=== PATIENT | female | born 1965 | race Caucasian/White ===

== ENCOUNTER → 2016-10-12 | Outpatient (CLI) | payer BC ==
--- NOTE | 2016-10-13 11:51 | MM ---
Reason for exam: screening (asymptomatic). Last mammogram was performed 1 year and 1 month ago. Physical Findings: A clinical breast exam by your physician is recommended on an annual basis and results should be correlated with mammographic findings. MG 3D Screening Mammo W/Cad Bilateral CC and MLO view(s) were taken. XCCL view(s) were taken of the right breast. Prior study comparison: September 01, 2015, mammogram, performed at [facility]. May 31, 2011, mammogram, performed at [facility]. The breast tissue is heterogeneously dense. This may lower the sensitivity of mammography. Finding: There are typically benign round, diffuse/scattered and grouped calcifications in both breasts. There is no discrete abnormality. ASSESSMENT: Benign, BI-RAD 2 RECOMMENDATION: Routine screening mammogram of both breasts in 1 year.
== END | disposition home or self-care (01) ==
LOC: RADMAMWWP 08:50
PROVIDERS: ATTEND Family Medicine
DX: Z12.31 Encounter for screening mammogram for malignant neoplasm of breast (principal)
CPT/HCPCS: 77063; G0202

== ENCOUNTER → 2020-09-18 | Outpatient (CLI) | payer BC ==
--- NOTE | 2020-09-23 12:13 | MM ---
Reason for exam: screening (asymptomatic). Last mammogram was performed 3 years and 11 months ago. Physical Findings: A clinical breast exam by your physician is recommended on an annual basis and results should be correlated with mammographic findings. MG 3D Screening Mammo W/Cad Bilateral CC and MLO view(s) were taken. Prior study comparison: October 12, 2016, bilateral MG 3d screening mammo w/cad. September 01, 2015, mammogram, performed at [facility]. The breast tissue is heterogeneously dense. This may lower the sensitivity of mammography. Bilateral scattered breast calcifications. ASSESSMENT: Benign, BI-RAD 2 RECOMMENDATION: Routine screening mammogram of both breasts in 1 year.
== END | disposition home or self-care (01) ==
LOC: RADMAMWWP 15:20
PROVIDERS: ATTEND Family Medicine
DX: Z12.31 Encounter for screening mammogram for malignant neoplasm of breast (principal)
CPT/HCPCS: 77063; 77067

== ENCOUNTER → 2021-10-12 | Outpatient (CLI) | payer BC ==
--- NOTE | 2021-10-14 17:35 | MM ---
Reason for Exam: Screening (asymptomatic). Last mammogram was performed 1 year(s) and 1 month(s) ago. Patient History: Menarche at age 13. First Full-Term at age 25. Risk Values: Mel 5 year model risk: 1.1%. NCI Lifetime model risk: 8.2%. Prior Study Comparison: 09/01/2015 Screening Mammogram, [facility]. 10/12/2016 Bilateral Screening Mammogram, [facility]. 09/18/2020 Bilateral Screening Mammogram, [facility]. Tissue Density: The breast tissue is heterogeneously dense. This may lower the sensitivity of mammography. Findings: Analyzed By CAD. Pattern appears symmetrical and stable. Benign-appearing calcifications are in the left breast. Punctate calcifications are within the right breast. In the medial lateral oblique view there is a grouping of punctate calcifications upper outer aspect. Additional evaluation is recommended. Magnification view in the mediolateral oblique view as well as a standard 3-D mediolateral view is recommended. These are 6 cm from the nipple. Overall Assessment: Incomplete: need additional imaging evaluation, BI-RAD 0 Management: Diagnostic Mammogram of the left breast. A negative mammogram report should not preclude additional follow up of suspicious palpable abnormalities. Patient should continue monthly self breast exam. A clinical breast exam by your physician is recommended on an annual basis and results should be correlated with mammographic findings. Electronically signed and approved by: Khurram Haider D.O. Radiologis
== END | disposition home or self-care (01) ==
LOC: RADMAMWWP 11:13
PROVIDERS: ATTEND Family Medicine
DX: Z12.31 Encounter for screening mammogram for malignant neoplasm of breast (principal)
CPT/HCPCS: 77063; 77067

== ENCOUNTER → 2021-10-19 | Outpatient (CLI) | payer BC ==
--- NOTE | 2021-10-19 10:25 | MM ---
Reason for Exam: Additional evaluation requested from abnormal screening. Last screening mammogram was performed less than 1 month ago. Patient History: Menarche at age 13. First Full-Term at age 25. Risk Values: Mel 5 year model risk: 1.1%. NCI Lifetime model risk: 8.2%. Prior Study Comparison: 10/12/2016 Bilateral Screening Mammogram, [facility]. 09/18/2020 Bilateral Screening Mammogram, [facility]. 10/12/2021 Bilateral MG 3D screening mammo w/cad, [facility]. Tissue Density: Left: The breast tissue is heterogeneously dense. This may lower the sensitivity of mammography. Findings: Analyzed By CAD. A few benign oil cyst calcifications are present. However, in the posterior upper outer quadrant, grouped punctate and slightly heterogeneous calcifications are identified. Biopsy is recommended. Overall Assessment: Suspicious, BI-RAD 4 Management: Stereotactic Core Biopsy of the left breast. 1. Stereotactic core needle biopsy posterior upper outer quadrant left breast microcalcifications. Electronically signed and approved by: Sukhdeep Cano M.D. Radiologist
== END | disposition home or self-care (01) ==
LOC: RADMAMWWP 09:39
PROVIDERS: ATTEND Family Medicine
DX: R92.1 Mammographic calcification found on diagnostic imaging of breast (principal)
CPT/HCPCS: 77061; 77065

== ENCOUNTER → 2021-11-25 | Day surgery (SDC) | payer BC ==
[2021-11-25 07:21] VITALS: RESP 16
--- NOTE | 2021-11-25 07:59 | P.GSHP ---
History of Present Illness H&P Date: 11/25/21 Chief Complaint: abnormal Doris is a 56 year old white female with seeni n consultation for Sheryl Salvador regarding the mammographic abnormality in her t breast. She underwent a bilateral calcifications of concern were noted and a diagnostic left breast mammogram was performed and [id number]. This revealed calcifications of concern in the posterior upper outer quadrant. Biopsy was recommended. She does not feel any lumps masses or nodules of concern in either breast. She has never had any surgery on her breast or any breast biopsies. She is not complaining of any pain in her breast nipple discharge or skin changes. Caffeine: 3 cups/day nicotine: none chocolate: weekly hormones: BCP stopped 25 year ago, used for 10 years Family History: none of cancer Hormonal History: menarche: 13 A1, breast fed: no, age at : 25 menopause: 54 Surgical history: Negative Medical history: Negative Social history: Nicotine: Negative Alcohol: weekly; beer drugs: none - Constitutional Constitutional: Denies chills, Denies fever - EENT Eyes: denies blurred vision, denies pain Ears: deny: decreased hearing, tinnitus Ears, nose, mouth and throat: Denies headache, Denies sore throat - Breasts Breasts: bilateral: as per HPI - Cardiovascular Cardiovascular: Denies chest pain, Denies shortness of breath - Respiratory Respiratory: Denies cough, Denies 7 - Gastrointestinal Gastrointestinal: Denies abdominal pain, Denies diarrhea, Denies nausea, Denies vomiting - Genitourinary (Female) Genitourinary: Denies dysuria, Denies hematuria - Menstruation Menstruation: Reports postmenopausal - Musculoskeletal Comment: joint pains at times - Integumentary Integumentary: Denies pruritus, Denies rash - Neurological Neurological: Denies numbness, Denies weakness - Psychiatric Psychiatric: Reports anxiety, Denies depression - Endocrine Endocrine: Denies fatigue, Denies weight change - Hematologic/Lymphatic Comment: none - Allergic/Immunologic Allergic/Immunologic: Reports seasonal allergies Past Medical History Past Medical History: No Reported History History of Any Multi-Drug Resistant Organisms: None Reported Past Surgical History: No Surgical Hx Reported Past Anesthesia/Blood Transfusion Reactions: No Reported Reaction Past Psychological History: Anxiety, Depression Smoking Status: Former smoker Past Alcohol Use History: Occasional Past Drug Use History: None Reported Medications and Allergies Home Medications Medication Instructions Recorded Confirmed Type FLUoxetine HCL [PROzac] 20 mg PO DAILY 10/29/21 11/25/21 History busPIRone HCl [Buspar] 1 tablet PO DAILY 10/29/21 11/25/21 History Allergies Allergy/AdvReac Type Severity Reaction Status Date / Time No Known Allergies Allergy Verified 11/25/21 07:31 Surgical - Exam Vital Signs Temp Pulse Resp BP 98.0 F 71 16 132/77 11/25/21 07:14 11/25/21 07:14 11/25/21 07:14 11/25/21 07:14 BMI: 26.5 - General moderate distress - Eyes normal ocular movement - Neck trachea midline - Respiratory normal respiratory effort - Cardiovascular Rhythm: regular Heart Sounds: normal: S1, S2 - Abdomen Abdomen: soft, non tender, no guarding, no rigid, no rebound - Integumentary poison perla left ankle - Neurologic no disoriented, no combative - Musculoskeletal normal gait, normal posture - Psychiatric oriented to time, oriented to person, oriented to place, speech is normal, memory intact Breast Exam: BRA: 36B inspection: bilateral grade 2 ptosis palpation: right breast: Multi-positional exam fibrocystic changes no dominant masses or nodules of concern Right axilla: No adenopathy of concern Left breast: Multi-positional exam fibrocystic changes no dominant masses or nodules of concern Left axilla: No adenopathy of concern Results Mammogram reviewed with Dr. Salcedo Assessment and Plan Assessment: Impression: Microcalcifications of concern noted in the left breast on recent mammogram Fibrocystic breast changes Plan: Stereotactic core biopsy left breast The skin benefits of procedure discussed with the patient. As well as alternatives. Risks include but are not limited to bleeding, infection, r eaction to the anesthetic. If the biopsy were felt to be discordant then further tissue sampling may be necessary. Alternatives such as watchful waiting resection in the operating room were discussed but not recommended. Patient understands and wishes to proceed. CC: Sheryl Salvador
--- NOTE | 2021-11-25 08:44 | P.PCN ---
Date of Procedure: 11/25/21 Preoperative Diagnosis: Microcalcifications of concern left breast upper outer quadrant, posterior position Postoperative Diagnosis: Same Procedure(s) Performed: Left breast stereotactic core biopsy Anesthesia: local Surgeon: Darlene Pompa Pathology: other (Breast tissue with microcalcifications of concern sent to pathology) Condition: stable Disposition: same day Indications for Procedure: Microcalcifications of concern left breast upper outer quadrant Operative Findings: Radiographic specimen revealed microcalcifications of concern in the specimen Description of Procedure: The patient was seen and examined preprocedure. On physical examination no dominant masses or nodules of concern were noted on multiple positional exam of either breast. She had no axillary adenopathy of concern on either axilla. Risks and benefits of the procedure were discussed with the patient. Risks include but are not limited to bleeding, infection, reaction to the anesthetic. If the biopsy specimen were discordant and the possibility of further tissue acquisition was discussed. Alternatives such as watchful waiting and resection of the operating room were discussed but not recommended. The patient understood and wished to proceed. The patient was taken to the stereotactic core biopsy room. She was positioned prone on the lower rad table. A lateral to medial approach was utilized. The lesion of concern was identified. The lesion was in the left breast in the upper-outer quadrant. The lesion was targeted. The breast was prepped using Betadine. 20 mL of 1% lidocaine were used to anesthetize the area of concern. A 9-gauge vacuum-assisted core rotating biopsy needle was driven to the correct coordinates. A prefire film was obtained. The needle was noted to be in the correct location. The needle was fired. Post fire film was obtained. The needle was noted to be in the correct location. 12 core biopsy specimens were obtained. The biopsy site was lavaged. Radiograph of the specimen revealed microcalcifications of concern had been sampled. A secure marked top Clip was placed. Radiograph revealed the clip to be in the correct location. The patient will follow-up with Dr. House next week. The specimen was sent to pathology. If she has any questions or concerns she will follow up sooner. CC: Sheryl Salvador
[2021-11-25 08:50] VITALS: BP 133/81; PULSE 64; TEMP 98.2
--- NOTE | 2021-11-25 14:04 | MM ---
Date of Procedure: 11/25/21 Preoperative Diagnosis: Microcalcifications of concern left breast upper outer quadrant, posterior position Postoperative Diagnosis: Same Procedure(s) Performed: Left breast stereotactic core biopsy Anesthesia: local Surgeon: Darlene Pompa Pathology: other (Breast tissue with microcalcifications of concern sent to pathology) Condition: stable Disposition: same day Indications for Procedure: Microcalcifications of concern left breast upper outer quadrant Operative Findings: Radiographic specimen revealed microcalcifications of concern in the specimen Description of Procedure: The patient was seen and examined preprocedure. On physical examination no dominant masses or nodules of concern were noted on multi-positional exam of either breast. She had no axillary adenopathy of concern in either axilla. Risks and benefits of the procedure were discussed with the patient. Risks include but are not limited to bleeding, infection, reaction to the anesthetic. If the biopsy specimen were discordant the possibility of further tissue acquisition was discussed. Alternatives such as watchful waiting and resection in the operating room were discussed but not recommended. The patient understood and wished to proceed. The patient was taken to the stereotactic core biopsy room. She was positioned prone on the lo rad table. A lateral to medial approach was utilized. The lesion of concern was identified. The lesion was in the left breast in the upper-outer quadrant. The lesion was targeted. The breast was prepped using Betadine. 20 mL of 1% lidocaine were used to anesthetize the area of concern. A 9-gauge vacuum-assisted core rotating biopsy needle was driven to the correct coordinates. A prefire film was obtained. The needle was noted to be in the correct location. The needle was fired. A post fire film was obtained. The needle was noted to be in the correct location. 12 core biopsy specimens were obtained. The biopsy site was lavaged. Radiograph of the specimen revealed microcalcifications of concern had been sampled. A secure giovana top-hat Clip was placed. Radiograph revealed the clip to be in the correct location. The patient will follow-up with Dr. House next week. The specimen was sent to pathology. If she has any questions or concerns she will follow up sooner. EARL
== END ==
LOC: RADMAMWWP 06:58
PROVIDERS: ATTEND Surgery
DX: N60.12 Diffuse cystic mastopathy of left breast (principal); N60.82 Other benign mammary dysplasias of left breast; F41.9 Anxiety disorder, unspecified; F32.A Depression, unspecified; J30.2 Other seasonal allergic rhinitis; Z87.891 Personal history of nicotine dependence; Z79.899 Other long term (current) drug therapy
CPT/HCPCS: 88305; 88342; 88341; 19081; A4648; J2001

== ENCOUNTER → 2021-11-25 | Outpatient (CLI) | payer BC | LOC: WWCWWP 06:54 | PROVIDERS: ATTEND Surgery | DX: Z53.9 Procedure and treatment not carried out, unspecified reason (principal) ==

== ENCOUNTER 2022-02-01 07:08 | Day surgery (SDC) | payer BC ==
[2022-01-28 15:34] VITALS: BMI 26.5
--- NOTE | 2022-01-28 16:15 | P.PN ---
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 She underwent a bilateral mammogram and calcifications of concern were noted in adonis left breast and a diagnostic left breast mammogram was performed on . This revealed calcifications of concern in the posterior upper outer quadrant. Biopsy was recommended. She did not feel any lumps masses or nodules of concern in either breast. She had never had any surgery on her breast or any breast biopsies. She was not complaining of any pain in her breast or nipple discharge or skin changes. She underwent a stero biopsy on 11-25-21 which revealed atypical ductal hyperplasia. Caffeine: 3 cups/day nicotine: none chocolate: weekly hormones: BCP stopped 25 year ago, used for 10 years Family History: none of cancer Hormonal History: menarche: 13 A1, breast fed: no, age at : 25 menopause: 54 Surgical history: Negative Medical history: Negative Social history: Nicotine: Negative Alcohol: weekly; beer drugs: none - Constitutional Constitutional: Denies chills, Denies fever - EENT Eyes: denies blurred vision, denies pain Ears: deny: decreased hearing, tinnitus Ears, nose, mouth and throat: Denies headache, Denies sore throat - Breasts Breasts: bilateral: as per HPI - Cardiovascular Cardiovascular: Denies chest pain, Denies shortness of breath - Respiratory Respiratory: Denies cough - Gastrointestinal Gastrointestinal: Denies abdominal pain, Denies diarrhea, Denies nausea, Denies vomiting - Genitourinary (Female) Genitourinary: Denies dysuria, Denies hematuria - Menstruation Menstruation: Reports postmenopausal - Musculoskeletal Comment: joint pains at times - Integumentary Integumentary: Denies pruritus, Denies rash - Neurological Neurological: Denies numbness, Denies weakness - Psychiatric Psychiatric: Reports anxiety, Denies depression - Endocrine Endocrine: Denies fatigue, Denies weight change - Hematologic/Lymphatic Comment: none - Allergic/Immunologic Allergic/Immunologic: Reports seasonal allergies Objective - Vital Signs Vital signs: Intake & Output 01/27/22 01/28/22 01/28/22 18:59 06:59 18:59 Weight 65.771 kg - Exam BMI: 26.5 - Constitutional General appearance: Present: cooperative - EENT Eyes: Present: EOMI - Neck Neck: Present: normal ROM - Respiratory Respiratory: bilateral: CTA - Cardiovascular Rhythm: regular Heart sounds: normal: S1, S2 - Integumentary Integumentary: Present: normal turgor - Musculoskeletal Musculoskeletal: Present: gait normal - Psychiatric Psychiatric: Present: A&O x's 3, appropriate affect, intact judgment & insight - Additional findings Additional findings: Breast Exam: BRA: 36B inspection: bialteral grade 2 ptosis palpation: right breast: Multiple positional exam no dominant masses or nodules of concern Right axilla: No adenopathy of concern Left breast: Biopsy site mild ecchymosis no evidence of any infection or hematoma Left axilla: No adenopathy of concern Assessment and Plan Assessment: Impression: Left breast core biopsy flat epithelial atypia, atypical hyperplasia Plan: left breast Needle localization and left breast excisional lumpectomy, possible onco-plastic tissue transfer
[~2022-02-01 07:08] MED LIST: ALPRAZolam 0.5 MG TAB PO PRN; DEXAMETHASONE SOD PHOSPHATE 4 MG/ML 1 ML VIAL IV ONE; HEPARIN SODIUM,PORCINE/PF 5,000 UNIT/0.5 ML SYRINGE SQ PRN; LACTATED RINGERS 1,000 ML IV SCH; ONDANSETRON 4 MG/2 ML VIAL IVP ONE; Pre Op ABX Message 1 EACH MISC MISCELLANE ONE
[2022-02-01] MEDS ORDERED: LIDOCAINE 1% INJ 10MG/ML (20 ML MDV) SQ ONE (08:45)
[2022-02-01] MEDS ORDERED: MIDAZOLAM 2 MG/2 ML VIAL ONE (09:44)
[2022-02-01] MEDS ORDERED: PROPOFOL 10 MG/ML 20 ML VIAL IV ONE (09:44)
[2022-02-01] MEDS ORDERED: fentaNYL (PF) 50 MCG/ML 2 ML AMP ONE (09:44)
[2022-02-01] MEDS ORDERED: LIDOCAINE 2% INJ 20 MG/ML (2 ML VIAL) ONE (09:44)
--- NOTE | 2022-02-01 11:01 | P.OP ---
Date of Procedure: 02/01/22 Preoperative Diagnosis: epithelial atypia left breast on core biopsy Postoperative Diagnosis: same Procedure(s) Performed: left breast needle localization excisional lumpectomy Anesthesia: RAN Surgeon: Darlene Pompa Estimated Blood Loss (ml): 5 IV fluids (ml): 500 Pathology: other (left breast tissue, clip noted to be in specimen) Condition: stable Disposition: same day Indications for Procedure: core biopsy revealing epithelial atypia of the left breast Operative Findings: dense breast tissue Description of Procedure: The patient underwent a core biopsy of the left breast which revealed epithelial atypia. She was recommended to undergo needle localization and excisional lumpectomy in the operating room. Following needle localization of the area of concern and the patient was brought to the operating room. Following induction with anesthesia the left breast was prepped and draped in a sterile fashion. An incision was made and carried down to the shaft of the needle. Surrounding tissue was excised. The tissue was painted for orientation. Radiograph of the specimen revealed the area of concern had been removed with the clip present. After assured that hemostasis was attained titanium clips were placed. The deep tissues were closed using 3-0 Vicryl suture. The skin was closed using 3-0 Vicryl suture and 4-0 Monocryl. Steri-Strips were applied. All instrument and sponge counts were correct at the end of the case.
[2022-02-01 11:12] VITALS: TEMP 97
[2022-02-01] MEDS: HYDROmorphone 0.5 MG/0.5 ML SYRINGE IVP PRN ×2 (11:48→11:59)
[2022-02-01 13:00] VITALS: BP 127/73; PULSE 78; RESP 18
--- NOTE | 2022-02-08 09:32 | MM ---
Risk Values: Mel 5 year model risk: 2.6%. NCI Lifetime model risk: 17.9%. Prior Study Comparison: 09/18/2020 Bilateral Screening Mammogram, [facility]. 10/12/2021 Bilateral MG 3D screening mammo w/cad, [facility]. 10/19/2021 Left MG 3D work up w/cad , [facility]. Pathology Description: Approach: Lateral to Medial Needle Type: 5 cm [place] Informed consent was obtained and all the patient's questions were answered. The clip in question was localized mammographically. The standard sterile technique was utilized, as well as appropriate local anesthesia with 1% Lidocaine and bicarbonate. Localization needle followed by placement of a guidewire was performed under mammographic guidance. Verification images demonstrate appropriate deployment of the guidewire. The patient tolerated the procedure well and left the department in stable condition. Specimen radiograph demonstrates the clip in question to reside within the specimen. IMPRESSION: Successful needle localization and open biopsy left breast with pathology results pending. Pathology Results: Result: High risk, Atypical ductal hyperplasia. LEFT BREAST, LUMPECTOMY: Focal flat epithelial atypia/atypical ductal hyperplasia (FEA/ADH) with adjacent hemorrhagic biopsy site change and scar. Background breast having fibrocystic change with apocrine metaplasia, columnar cell change, microcalcification and focal benign adenosis. Benign margins of resection. Overall Assessment: High risk Management: Diagnostic Mammogram of the left breast in 6 months. Electronically signed and approved by: Denzel Salcedo M.D. Radiologis
== END 2022-02-01 13:26 | disposition home or self-care (01) ==
LOC: OR 07:08
PROVIDERS: ATTEND Surgery
DX: N60.82 Other benign mammary dysplasias of left breast (principal); N62 Hypertrophy of breast; K21.9 Gastro-esophageal reflux disease without esophagitis; F32.A Depression, unspecified; F17.290 Nicotine dependence, other tobacco product, uncomplicated; Z79.899 Other long term (current) drug therapy
CPT/HCPCS: 19301; 88307; 76098; 19281; C1819; J2250; J1100; J2405; J2001 ×2; J3010; J2704; J1170; J1644

== ENCOUNTER → 2022-02-17 | Outpatient (CLI) | payer BC ==
[2022-02-17 08:47] VITALS: BP 131/84; PULSE 83; RESP 17; TEMP 98.2
--- NOTE | 2022-02-17 09:22 | P.PN ---
Progress Note - Text Progress Note Date: 02/17/22 Doris is a 56 year old white female status post left breast lumpectomy on 02-01-22. Pathology revealed flat epithelial atypia/atypical ductal hyperplasia. The patient tolerated the procedure without difficulty. Physical examination: Incision: Clean and dry, there is some extrusion of the knot at the lateral portion of the incision which was cut No evidence of infection Lungs: Clear Heart: Regular rate and rhythm Secondary to the atypical hyperplasia at Mel risk evaluation is evaluated. Mel Evaluation: 5 year risk: 2.6 lifetime risk; 17.9 We have discussed potential chemoprophylaxis and at this time the patient has declined. Plan: Repeat left breast mammogram in 6 months with physician exam at that time CC: Kayce Salvador
== END ==
LOC: WWCWWP 08:30
PROVIDERS: ATTEND Surgery
DX: N60.82 Other benign mammary dysplasias of left breast (principal)

== ENCOUNTER → 2022-08-04 | Outpatient (CLI) | payer BC ==
--- NOTE | 2022-08-04 13:27 | MM ---
Reason for Exam: High risk patient. Last screening mammogram was performed 9 month(s) ago. Patient History: Menarche at age 13. First Full-Term at age 25. Postmenopausal. Previous Atypical Ductal Hyperplasia at age 56. 02/01/2022, High risk MG pre op needle loc LT on the left side. 11/25/2021, High risk MG stereo VAD BX LT on the left side. Risk Values: Mel 5 year model risk: 3.4%. NCI Lifetime model risk: 21.7%. Prior Study Comparison: 09/18/2020 Bilateral Screening Mammogram, [facility]. 10/12/2021 Bilateral MG 3D screening mammo w/cad, [facility]. 10/19/2021 Left MG 3D work up w/cad LT, [facility]. Tissue Density: Left: The breast tissue is heterogeneously dense. This may lower the sensitivity of mammography. Findings: Analyzed By CAD. Postprocedural changes to the left breast. No new suspicious masses, calcifications or distortions. Overall Assessment: Benign, BI-RAD 2 Management: Screening Mammogram of both breasts in 1 year. A clinical breast exam by your physician is recommended on an annual basis and results should be correlated with mammographic findings. This exam should not preclude additional follow-up of suspicious palpable abnormalities. Results were given to the patient verbally at the time of exam. Electronically signed and approved by: Shade Aggarwal DO
[2022-08-04 13:56] VITALS: BP 105/68; PULSE 78; RESP 16; TEMP 97.8
--- NOTE | 2022-08-04 14:12 | P.PN ---
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 She underwent a bilateral mammogram and calcifications of concern were noted in adonis left breast and a diagnostic left breast mammogram was performed on . This revealed calcifications of concern in the posterior upper outer quadrant. Biopsy was recommended. She did not feel any lumps masses or nodules of concern in either breast. She had never had any surgery on her breast or any breast biopsies. She was not complaining of any pain in her breast or nipple discharge or skin changes. She underwent a stero biopsy on 11-25-21 which revealed atypical ductal hyperplasia. She underwent a lumpectomy on 02-01-22, pathology revealed flat epithelial atypia atypical ductal hyperplasia. Left breast mammogram on 08-04-22 BIRAD 2. Does not feel any new lumps masses or nodules of concern in either breast. Mel 5 year risk: 3.4% Discussed chemoprevention at this time she has declined. Caffeine: 3 cups/day nicotine: none chocolate: weekly hormones: BCP stopped 25 year ago, used for 10 years Family History: none of cancer Hormonal History: menarche: 13 A1, breast fed: no, age at : 25 menopause: 54 Surgical history: left breast lumpectomy Medical history: Negative Social history: Nicotine: Negative Alcohol: weekly; beer drugs: none - Constitutional Constitutional: Denies chills, Denies fever - EENT Eyes: denies blurred vision, denies pain Ears: deny: decreased hearing, tinnitus Ears, nose, mouth and throat: Denies headache, Denies sore throat - Breasts Breasts: bilateral: as per HPI - Cardiovascular Cardiovascular: Denies chest pain, Denies shortness of breath - Respiratory Respiratory: Denies cough - Gastrointestinal Gastrointestinal: Denies abdominal pain, Denies diarrhea, Denies nausea, Denies vomiting - Genitourinary (Female) Genitourinary: Denies dysuria, Denies hematuria - Menstruation Menstruation: Reports postmenopausal - Musculoskeletal Comment: joint pains at times - Integumentary Integumentary: Denies pruritus, Denies rash - Neurological Neurological: Denies numbness, Denies weakness - Psychiatric Psychiatric: Reports anxiety, Denies depression - Endocrine Endocrine: Denies fatigue, Denies weight change - Hematologic/Lymphatic Comment: none - Allergic/Immunologic Allergic/Immunologic: Reports seasonal allergies Objective - Vital Signs Vital signs: Vital Signs Temp 97.8 F 08/04/22 13:53 Pulse 78 08/04/22 13:53 Resp 16 08/04/22 13:53 BP 105/68 08/04/22 13:53 Pulse Ox 99 08/04/22 13:53 FiO2 Intake & Output 08/03/22 08/04/22 08/04/22 18:59 06:59 18:59 Weight 64.864 kg - Constitutional General appearance: Present: cooperative - EENT Eyes: Present: EOMI ENT: Present: hearing grossly normal - Neck Neck: Present: normal ROM - Respiratory Respiratory: bilateral: CTA - Cardiovascular Rhythm: regular Heart sounds: normal: S1, S2 - Gastrointestinal General gastrointestinal: Present: soft - Integumentary Integumentary: Present: normal turgor - Musculoskeletal Musculoskeletal: Present: gait normal - Psychiatric Psychiatric: Present: A&O x's 3, appropriate affect, intact judgment & insight - Additional findings Additional findings: Breast Exam: BRA: 36B inspection: bialteral grade 2 ptosis palpation: right breast: Multi-positional exam no dominant masses or nodules of concern Right axilla: No adenopathy of concern Left breast: multi-positional exam no dominate masses or nodules of concern Left axilla: No adenopathy of concern Assessment and Plan Assessment: Impression: Left breast flat epithelial atypia, atypical hyperplasia; re-sected 02-01-22 Plan: Bilateral mammogram is due in October, will do a right breast mammogram at that time and appointment after if that is OK bilateral mammogram in October 2023 CC: Kayce Salvador
== END ==
LOC: WWCWWP 12:47
PROVIDERS: ATTEND Surgery
DX: N60.92 Unspecified benign mammary dysplasia of left breast (principal); R92.8 Other abnormal and inconclusive findings on diagnostic imaging of breast; Z12.31 Encounter for screening mammogram for malignant neoplasm of breast
CPT/HCPCS: 77061; 77065

== ENCOUNTER → 2022-08-04 | Outpatient (CLI) | payer BC | END | disposition home or self-care (01) | LOC: RADMAMWWP 13:08 | PROVIDERS: ATTEND Surgery | DX: Z53.9 Procedure and treatment not carried out, unspecified reason (principal) ==

== ENCOUNTER → 2022-10-24 | Outpatient (CLI) | payer BC ==
--- NOTE | 2022-10-24 07:59 | MM ---
Reason for Exam: Follow-up at short interval from prior study. Last screening mammogram was performed 12 month(s) ago. Patient History: Menarche at age 13. First Full-Term at age 25. Postmenopausal. Previous Atypical Ductal Hyperplasia at age 56. 02/01/2022, High risk MG pre op needle loc LT on the left side. 11/25/2021, High risk MG stereo VAD BX LT on the left side. Risk Values: Mel 5 year model risk: 3.4%. NCI Lifetime model risk: 21.7%. Prior Study Comparison: 10/12/2021 Bilateral MG 3D screening mammo w/cad, [facility]. 10/19/2021 Left MG 3D work up w/cad LT, [facility]. 08/04/2022 Left MG 3D diag mammo w/cad LT, [facility]. Tissue Density: Right: The breast tissue is heterogeneously dense. This may lower the sensitivity of mammography. Findings: Analyzed By CAD. No new suspicious masses, calcifications or distortions. Overall Assessment: Benign, BI-RAD 2 Management: Screening Mammogram of both breasts in 1 year. Results were given to the patient verbally at the time of exam. Patient should continue monthly self-breast exams. A clinical breast exam by your physician is recommended on an annual basis. This exam should not preclude additional follow-up of suspicious palpable abnormalities. Note on Mel scores and lifetime risk: 1. A Mel score greater than 3% is considered moderate risk. If this is the case, consider specialist referral to assess eligibility for a risk reducing agent. 2. If overall lifetime risk for the development of breast cancer is 20% or higher, the patient may qualify for future screening with alternating mammogram and breast MRI. Electronically signed and approved by: Shade Aggarwal DO
== END | disposition home or self-care (01) ==
LOC: RADMAMWWP 07:41
PROVIDERS: ATTEND Surgery
DX: R92.8 Other abnormal and inconclusive findings on diagnostic imaging of breast (principal); Z78.0 Asymptomatic menopausal state
CPT/HCPCS: 77061; 77065

== ENCOUNTER → 2022-10-26 | Outpatient (CLI) | payer BC ==
--- NOTE | 2022-10-26 14:25 | P.PN ---
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 This was BIRAD 2. Her last left breast mammogram was in . This was also BIRAD 2. This was done following an open biopsy of the left breast. She is not complaining of any new lumps masses or not his of concern in either breast. She underwent a left breast stereo biopsy on which revealed atypical ductal hyperplasia. She then underwent a left breast lumpectomy on which revealed flat epithelial atypia/atypical ductal hyperplasia. Mel 5 year risk: 3.4% Discussed chemoprevention at this time she has declined. Lifetime risk 21.7% discussed alternating MRI/mammogram and she would like to do this if her insurance covers it Caffeine: 3 cups/day nicotine: none chocolate: weekly hormones: BCP stopped 25 year ago, used for 10 years Family History: none of cancer Hormonal History: menarche: 13 A1, breast fed: no, age at : 25 menopause: 54 Surgical history: left breast lumpectomy Medical history: Negative Social history: Nicotine: Negative Alcohol: weekly; beer drugs: none - Constitutional Constitutional: Denies chills, Denies fever - EENT Eyes: denies blurred vision, denies pain Ears: deny: decreased hearing, tinnitus Ears, nose, mouth and throat: Denies headache, Denies sore throat - Breasts Breasts: bilateral: as per HPI - Cardiovascular Cardiovascular: Denies chest pain, Denies shortness of breath - Respiratory Respiratory: Denies cough - Gastrointestinal Gastrointestinal: Denies abdominal pain, Denies diarrhea, Denies nausea, Denies vomiting - Genitourinary (Female) Genitourinary: Denies dysuria, Denies hematuria - Menstruation Menstruation: Reports postmenopausal - Musculoskeletal Comment: joint pains at times - Integumentary Integumentary: Denies pruritus, Denies rash - Neurological Neurological: Denies numbness, Denies weakness - Psychiatric Psychiatric: Reports anxiety, Denies depression - Endocrine Endocrine: Denies fatigue, Denies weight change - Hematologic/Lymphatic Comment: none - Allergic/Immunologic Allergic/Immunologic: Reports seasonal allergies Physical examination is not repeated today she had a breast examination and Assessment and Plan Assessment: Assessment and Plan Assessment: Impression: Left breast flat epithelial atypia, atypical hyperplasia; resected 02-01-22 Left breast mammogram [id number] BIRAD 2, right breast mammogram [id number] BIRAD 2 Plan: Bilateral mammogram in July 2022 with appointment at that time The patient will have alternating MRI and mammogram every 6 months secondary to lifetime risk of breast cancer greater than 20% of insurance company will cover this The patient has declined chemoprevention The patient will follow up sooner any questions or concerns CC: Kayce Salvador Additional CC's: Kenton Navarro
== END ==
LOC: WWCWWP 13:34
PROVIDERS: ATTEND Surgery
DX: R92.8 Other abnormal and inconclusive findings on diagnostic imaging of breast (principal); N60.82 Other benign mammary dysplasias of left breast; Z90.12 Acquired absence of left breast and nipple

== ENCOUNTER → 2023-05-23 | Outpatient (CLI) | payer BC ==
--- NOTE | 2023-05-24 13:02 | BMR ---
EXAM DATE: 05/23/2023 EXAM DESCRIPTION: MRI-Breast Bilat (W/WO Contrast) INDICATION: >20% lifetime risk for malignancy, high risk surveillance. History of high-risk lesion in the left breast status post surgical excision. COMPARISON: Comparison was made to prior relevant imaging available in PACS TECHNIQUE: Multiplanar multisequence breast MRI was performed prior to and after administration of 6.0 mL of Gadavist intravenously. Post processing was performed utilizing a [employer] workstation. FINDINGS: There is minimal, symmetric background parenchymal enhancement in breasts that are composed of heterogeneous fibroglandular tissue. RIGHT BREAST: There is a well-circumscribed ovoid T2 hyperintense enhancing mass centrally in the breast along the nipple line anterior depth (series 401, image 32, series 505, image 356 and series 601, image 160). It measures 0.5 x 0.4 x 0.3 cm and demonstrate progressive enhancing pattern which is suggestive of benign etiology. Otherwise, review of the dynamic contrast enhanced series shows no suspicious enhancement patterns or other abnormalities. LEFT BREAST: Postsurgical changes are present in the left breast. Mild linear enhancement along the posterior aspect of the nipple (series 505, image 424 and series 601, image 40). Otherwise, review of the dynamic contrast enhanced series shows no rapidly enhancing masses, suspicious enhancement pattern or other abnormalities. The T2 weighted series show no abnormality. IMPRESSION: Right breast: BI-RADS Category 3-probably benign. A 0.5 x 0.4 x 0.3 cm well-circumscribed T2 hyperintense enhancing mass centrally in the anterior depth of the breast. Recommendation: Targeted ultrasound of the right breast with ultrasound-guided biopsy if clinically. If no definitive sonographic correlate, recommend follow- up with breast MRI in 6-12 months. Left breast: BI-RADS Category 3-probably benign. Mild linear enhancement along the posterior aspect of the nipple, probably benign, may be related to torturous vessel. Recommendation: Follow-up MRI in 6-12 months. OVERALL ASSESSMENT- BI-RADS 3 MTDD
== END | disposition home or self-care (01) ==
LOC: RADMRIMAIN 07:40
PROVIDERS: ATTEND Surgery
DX: R92.8 Other abnormal and inconclusive findings on diagnostic imaging of breast (principal); N63.20 Unspecified lump in the left breast, unspecified quadrant; N63.10 Unspecified lump in the right breast, unspecified quadrant
CPT/HCPCS: 77049; A9585

== ENCOUNTER → 2023-06-26 | Outpatient (CLI) | payer BC ==
--- NOTE | 2023-06-26 10:13 | USB ---
Reason for Exam: Additional evaluation requested from prior study. Patient History: Menarche at age 13. First Full-Term at age 25. Postmenopausal. Previous Atypical Ductal Hyperplasia at age 56. 02/01/2022, High risk MG pre op needle loc LT on the left side. 11/25/2021, High risk MG stereo VAD BX LT on the left side. Risk Values: Mel 5 year model risk: 3.5%. NCI Lifetime model risk: 21.3%. Technique: Method: Targeted. Doppler: Color. Patient Position: Supine. Prior Study Comparison: 10/19/2021 Left MG 3D work up w/cad LT, [facility]. 08/04/2022 Left MG 3D diag mammo w/cad LT, [facility]. 10/24/2022 Right MG 3D diag mammo w/cad RT, [facility]. 05/23/2023 Bilateral MR breast bilat wo/w con, [facility]. Findings: The periareolar of the right breast, the axilla of the right breast and the retroareolar of the right breast were scanned. Targeted ultrasound subareolar and periareolar right breast for second look from the patient's MRI findings. At the 6:00 position periareolar, there is a lobulated hypoechoic lesion with some minimal internal vascularity measuring 1.1 x 0.6 x 0.5 cm, possible MRI correlate for which tissue sampling can be performed. At the 3:00 position, 1 7 m from the nipple, there is an oval hypoechoic circumscribed area measuring 1.2 x 1.1 x 0.4 cm with posterior through transmission. This can be reassessed in 6 months. No other solid or cystic lesion. Overall Assessment: Suspicious, BI-RAD 4 Management: Ultrasound Core Biopsy of the right breast. 6:00 periareolar region, possible MRI correlate. In addition, 6 month follow-up ultrasound for the 3:00 area. Electronically signed and approved by: Sukhdeep Cano M.D. Radiologist
== END | disposition home or self-care (01) ==
LOC: RADUSWWP 09:25
PROVIDERS: ATTEND Surgery
DX: R68.89 Other general symptoms and signs (principal); Z78.0 Asymptomatic menopausal state

== ENCOUNTER → 2023-07-04 | Day surgery (SDC) | payer BC ==
--- NOTE | 2023-07-07 11:15 | MM ---
Reason for Exam: Post Procedure Mammogram. Last mammogram was performed 1 year(s) and 8 month(s) ago. Patient History: Menarche at age 13. First Full-Term at age 25. Postmenopausal. Previous Atypical Ductal Hyperplasia at age 56. 02/01/2022, High risk MG pre op needle loc LT on the left side. 11/25/2021, High risk MG stereo VAD BX LT on the left side. Risk Values: Mel 5 year model risk: 3.5%. NCI Lifetime model risk: 21.3%. Prior Study Comparison: 10/19/2021 Left MG 3D work up w/cad LT, [facility]. 08/04/2022 Left MG 3D diag mammo w/cad LT, [facility]. 10/24/2022 Right MG 3D diag mammo w/cad RT, [facility]. Tissue Density: Right: The breast tissue is heterogeneously dense. This may lower the sensitivity of mammography. Pathology Description: Location: retroareolar. Marker Left Behind. Needle Type: Mammotome Cores: 5 Gauge: 13 The procedure of ultrasound guided core biopsy was explained to the patient. Benefits, alternatives, and risks were discussed. An informed consent was then obtained. The patient was placed in supine positioning for imaging and for the procedure. The overlying skin was prepped and draped in usual sterile fashion. Lidocaine was used as anesthetic into the skin and subcutaneous tissue up to area of concern in the intended 6:00 position below the nipple. However, presently, we identify the intended area more peripherally in the breast closer to the 7:00 position. A benign etiology, possible prominent fat lobule encased in dense tissue is possible. Under ultrasound guidance, a 13-gauge vacuum-assisted mammotome biopsy gun was used to obtain 5 core samples. Following this, a butterfly clip was left in lesion. The patient tolerated the procedure well without any immediate complication. Some mild bleeding was controlled with 5 minutes of directed pressure. The patient was kept in the radiology department for short stay after the procedure and then discharged home in stable condition. Postprocedure mammogram: The patient was transferred to mammography for physician ordered post procedure mammogram for clip placement verification. The clip could not be identified on the postprocedure mammogram. Unclear if the clip was extruded during the period of initial bleeding after needle removal. IMPRESSION: Successful, uncomplicated ultrasound guided core biopsy of intended target inferior right breast. Note that, presently, the area is identified more peripherally in the breast closer to the 7:00 position. Given this, the biopsied area may not correlate to the area seen on MRI. In addition, the clip is not visualized and may have extruded during the period of initial bleeding after needle removal. If benign results, recommend a 5 month follow-up breast MRI to assess stability. Patient could also have bilateral diagnostic mammograms performed at that time. Full pathology results to follow. Pathology Results: Result: Benign, Fibrocystic change. RIGHT BREAST, POSTERIOR NIPPLE, ULTRASOUND GUIDED CORE BIOPSY: Benign breast tissue with fibrocystic change and fibroadenomatoid change, possibly representing fibroadenoma, if mass lesion represented. Negative for malignancy. Focal microcalcification present. Overall Assessment: Benign Assessment: MG diagnostic mammo RT wo CAD - Right: Probably benign, BI-RAD 3. Management: Diagnostic Breast MRI of both breasts in 6 months. The location may not correlate to the area seen on MRI. 6 month follow up MRI both breasts as suggested on MRI report 05/23/23. Electronically signed and approved by: Sukhdeep Cano M.D. Radiologist
== END ==
LOC: RADUSWWP 08:55
PROVIDERS: ATTEND Surgery
DX: R92.8 Other abnormal and inconclusive findings on diagnostic imaging of breast (principal); Z78.0 Asymptomatic menopausal state
CPT/HCPCS: 88305; 77065; 19083; A4648

== ENCOUNTER → 2023-10-31 | Outpatient (CLI) | payer BC ==
--- NOTE | 2023-10-31 09:56 | MM ---
Reason for Exam: Follow-up at short interval from prior study. Last mammogram was performed 2 year(s) and 0 month(s) ago. Patient History: Menarche at age 13. First Full-Term at age 25. Postmenopausal. Previous Atypical Ductal Hyperplasia at age 56. 07/04/2023, Benign US biopsy breast VAD RT on the right side. 02/01/2022, High risk MG pre op needle loc LT on the left side. 11/25/2021, High risk MG stereo VAD BX LT on the left side. Risk Values: Mel 5 year model risk: 3.5%. NCI Lifetime model risk: 21.3%. Prior Study Comparison: 05/31/2011 Screening Mammogram, [facility]. 09/01/2015 Screening Mammogram, [facility]. 10/12/2016 Bilateral Screening Mammogram, [facility]. 09/18/2020 Bilateral Screening Mammogram, [facility]. 10/12/2021 Bilateral MG 3D screening mammo w/cad, [facility]. 10/19/2021 Left MG 3D work up w/cad LT, [facility]. 08/04/2022 Left MG 3D diag mammo w/cad LT, [facility]. 10/24/2022 Right MG 3D diag mammo w/cad RT, [facility]. 05/23/2023 Bilateral MR breast bilat wo/w con, [facility]. 06/26/2023 Right US breast RT, [facility]. 07/04/2023 Right MG diagnostic mammo RT wo CAD, [facility]. Tissue Density: The breasts are heterogeneously dense, which may obscure small masses. Findings: Analyzed By CAD. Postexcisional changes left breast. Scattered benign oil cyst calcifications redemonstrated. No significant change from prior exams. Overall Assessment: Benign, BI-RAD 2 Management: Diagnostic Mammogram of both breasts in 1 year. Diagnostic Breast MRI of both breasts in 6 months. In order to continue with patient's high risk screening protocol. Results were given to the patient verbally at the time of exam. Patient should continue monthly self-breast exams. A clinical breast exam by your physician is recommended on an annual basis. This exam should not preclude additional follow-up of suspicious palpable abnormalities. Note on Mle scores and lifetime risk: 1. A Mel score greater than 3% is considered moderate risk. If this is the case, consider specialist referral to assess eligibility for a risk reducing agent. 2. If overall lifetime risk for the development of breast cancer is 20% or higher, the patient may qualify for future screening with alternating mammogram and breast MRI. Electronically signed and approved by: Sukhdeep Cano M.D. Radiologist
== END | disposition home or self-care (01) ==
LOC: RADMAMWWP 09:15
PROVIDERS: ATTEND Surgery
DX: Z12.31 Encounter for screening mammogram for malignant neoplasm of breast (principal); R92.8 Other abnormal and inconclusive findings on diagnostic imaging of breast; R92.331 Mammographic heterogeneous density, right breast; Z78.0 Asymptomatic menopausal state
CPT/HCPCS: 77062; 77066

== ENCOUNTER → 2023-11-03 | Outpatient (CLI) | payer BC ==
[2023-11-03 09:20] VITALS: BP 113/63; PULSE 83; RESP 16; TEMP 98.2
--- NOTE | 2023-11-03 09:33 | P.PN ---
Subjective Progress Note Date: 11/03/23 Principal diagnosis: Flat epithelial atypia Doris is a 58-year-old female with a history of left breast flat epithelial atypia. The patient underwent a left breast stereo biopsy on 11-25-2021 which revealed atypical ductal hyperplasia. She then underwent a left breast lumpec mel on 02-01-2022 which revealed flat epithelial atypia/atypical ductal hyperplasia. She was given the option of chemoprevention and declined. She has a lifetime risk of breast cancer which exceeds 20% and had the option of alternating breast MRIs. The patient did have a breast MRI done on 05-23-2023. It was recommended that a targeted ultrasound of the right breast be done with an ultrasound-guided biopsy. If no sonographic correlate was there a follow-up MRI MRI in 6 to 12 months was recommended. She did undergo a right breast ultrasound core biopsy on 07-04-2023. This was personally reviewed with Dr. Cano. It was felt that the area sampled may not be the same as what was seen in MRI and his recommendation was for a repeat 6-month follow-up MRI. The findings were benign concordant as to what was seen on ultrasound. The patient had most recently a bilateral mammogram on 10-31-2023. This was BI-RADS 2. There is some concern that the clip which should have been placed following the ultrasound-guided core biopsy was not evident on the most recent mammogram in the right breast. The patient does not feel any new lumps masses or nodules of concern in either breast. She is not complaining of any nipple discharge or skin changes. Mel 5-year risk 3.5% NCI lifetime risk 21.3% Caffeine: 3 cups/day Nicotine: Negative Chocolate: Weekly Hormones: control pills stopped 26 years ago used for 10 years Family History: Negative for cancer Hormonal history: Menarche: 13 G2, , breast-fed: Negative Age at first 25 Menopause: 54 Surgical history: Left breast lumpectomy Medical history: Negative Social history: Nicotine: Negative Alcohol: Beer weekly Drugs: Negative Review of systems: Constitutional: Negative HEENT: Negative Breast: As per HPI Cardiovascular: Negative Respiratory: Negative GI: Negative : Negative Menstruation: Postmenopausal Musculoskeletal: Joint pains at times Integument: Negative Neurologic: Negative Psychiatric: Negative Endocrine: Negative Otologic: Negative Seasonal allergies: Objective - Constitutional General appearance: Present: cooperative - EENT Eyes: Present: EOMI ENT: Present: hearing grossly normal - Neck Neck: Present: normal ROM - Respiratory Respiratory: bilateral: CTA - Cardiovascular Rhythm: regular Heart sounds: normal: S1, S2 - Integumentary Integumentary: Present: normal turgor - Musculoskeletal Musculoskeletal: Present: gait normal - Psychiatric Psychiatric: Present: A&O x's 3, appropriate affect, intact judgment & insight - Additional findings Additional findings: Patient: Bra: 36 B Inspection: Bilateral grade 2 ptosis Right breast: Multi positional exam no dominant masses or nodules of concern Right axilla: No adenopathy of concern Left breast: Multi positional exam no dominant masses or nodules of concern Left axilla: No adenopathy of concern Assessment and Plan Assessment: Impression: Left breast flat epithelial atypia, atypical hyperplasia; resected 02-01-22 Bilateral mammogram 10-31-2023 BI-RADS 2 MRI leading to an ultrasound-guided core biopsy of the right breast on 07-04-2023, although the pathology was benign concordant for the ultrasound findings there was some question as to the area biopsied truly represented that which have been seen on the MRI, therefore repeat MRI was recommended 6 months from the biopsy Plan: Bilateral breast MRI/patient high risk breast cancer at this time which will be 6 months from her right breast core biopsy; if insurance will not allow the MRI to be performed at this time we will repeated at 6 months from now. Appointment following breast MRI the patient will have a bilateral mammogram in 1 year We have discussed chemoprophylaxis and at this time she has declined Close surveillance If patient notes any questions or concerns she will see me sooner CC: Kayce Salvador
== END ==
LOC: WWCWWP 08:50
PROVIDERS: ATTEND Surgery
DX: N60.92 Unspecified benign mammary dysplasia of left breast (principal)

== ENCOUNTER → 2024-07-17 | Outpatient (CLI) | payer BC ==
--- NOTE | 2024-07-18 12:22 | BMR ---
EXAM DATE: 07/17/2024 EXAM DESCRIPTION: MRI-Breast Bilat (W/WO Contrast) INDICATION: Follow-up from prior imaging. Diagnostic COMPARISON: PRIOR MRIs: 05/23/2023. Correlation to mammograms: 07/04/2023, 10/31/2023. Correlation to ultrasound: 07/04/2023. CONTRAST: cc Gadavist IV gadolinium contrast TECHNIQUE: Multiplanar multisequence MR imaging of both breasts was performed with a dedicated breast coil. Images were obtained before and after administration of IV gadolinium, using the standard breast mass protocol. Computer aided detection was utilized for interpretation. FINDINGS: LMP: Not provided General breast composition: The breast is heterogeneously dense Background parenchymal enhancement: Mild RIGHT BREAST: The T2 weighted series shows few cysts.. Two circumscribed areas of enhancement measuring 0.5 and 0.3 cm in the central right breast appear stable with persistent enhancement kinetics, considered benign. LEFT BREAST: The T2 weighted series shows no areas of abnormal signal intensity. Review of the dynamic series shows no early or abnormal enhancement. LYMPH NODES: There is no evidence of internal mammary or axillary adenopathy. Miscellaneous findings:Hepatic cysts. IMPRESSION: RIGHT BREAST: No MR evidence of malignancy. Stable right breast findings. LEFT BREAST: No MR evidence of malignancy. OVERALL ASSESSMENT -- BI-RADS 2: Benign ANNUAL SCREENING BREAST MRI IN ADDITION TO MAMMOGRAPHY IS RECOMMENDED IN PATIENTS WITH LIFETIME RISK OF BREAST CANCER >20% MTDD
== END | disposition home or self-care (01) ==
LOC: RADMRIMAIN 06:51
PROVIDERS: ATTEND Surgery
DX: Z15.01 Genetic susceptibility to malignant neoplasm of breast (principal); R92.333 Mammographic heterogeneous density, bilateral breasts; N60.01 Solitary cyst of right breast
CPT/HCPCS: 77049; A9585